=== PATIENT | female | born 1955 | race Caucasian/White ===

== ENCOUNTER 2020-08-23 06:13 | Emergency (ER) | payer MEDICARE, OTHER ==
[~2020-08-23 06:13] MED LIST: ASPIRIN CHEWABL81 MG PO
[2020-08-23 08:00] LABS: HEMOGLOBIN 12.9 gm/dl (12.3-15.3); RED BLOOD COUNT 4.33 M/UL (4.00-5.10); WHITE BLOOD COUNT 11.1 K/UL (4.5-11.0)
[2020-08-23 08:29] LABS: BUN/CREATININE RATIO 35 (0-10)
[2020-08-23] MEDS ORDERED: OMNICEF 300 MG300 MG PO (11:26)
== END 2020-08-23 12:56 | disposition home or self-care (01) ==
LOC: ER1 06:13
PROVIDERS: Family Medicine
DX: R41.82 Altered mental status, unspecified (principal); N39.0 Urinary tract infection, site not specified; Z86.73 Personal history of transient ischemic attack (TIA), and cerebral infarction without residual deficits
CPT/HCPCS: 70450; 71045; 80053; 80307; 81001; 82550; 82553; 83605; 83690; 83735; 83874; 84439; 84443; 84484; 85025; 85610; 87077; 87086; 87186; 93005; 96374; 99285; J0696

== ENCOUNTER → 2020-11-06 | Outpatient (CLI) | payer MEDICARE, OTHER ==
[~2020-11-06] MED LIST changes: +OMNICEF 300 MG300 MG PO
== END ==
LOC: CT 09:22
DX: R10.9 Unspecified abdominal pain (principal); N20.0 Calculus of kidney
CPT/HCPCS: Q9967